=== PATIENT | female | born 1995 | race Two or more races ===

== ENCOUNTER 2024-12-04 16:34 | Day surgery (SDC) | payer SELFPAY ==
[2024-12-04 17:49] LABS: BASOPHILS ABSOLUTE AUTO 0.03 K/uL (0.00-0.20); BASOPHILS PERCENT AUTO 0.2 % (0.0-1.0); EOSINOPHILS ABSOLUTE AUTO 0.06 K/uL (0.00-0.45); EOSINOPHILS PERCENT AUTO 0.4 % (0.0-6.0); HEMATOCRIT 38.1 % (37.0-47.0); HEMOGLOBIN 13.6 g/dL (12.0-16.0); IMMATURE GRAN ABSOLUTE AUTO 0.05 K/uL (0.00-0.05); IMMATURE GRAN PERCENT AUTO 0.4 % (0.0-0.4); LYMPHOCYTES ABSOLUTE AUTO 1.51 K/uL (1.00-4.80); LYMPHOCYTES PERCENT AUTO 11.1 % (24.0-44.0); MEAN CORPUSCULAR HEMOGLOBIN 30.2 pg (28.0-32.0); MEAN CORPUSCULAR HGB CONC 35.7 g/dL (32.0-36.0); MEAN CORPUSCULAR VOLUME 84.7 fL (83.0-99.0); MEAN PLATELET VOLUME 10.5 fL (9.4-12.3); MONOCYTES ABSOLUTE AUTO 0.83 K/uL (0.00-0.80); MONOCYTES PERCENT AUTO 6.1 % (0.0-8.0); NEUTROPHILS ABSOLUTE AUTO 11.13 K/uL (1.80-7.70); NEUTROPHILS PERCENT AUTO 81.8 % (41.0-71.0); PLATELET COUNT,PLT 279 K/uL (150-400); WHITE BLOOD CELL COUNT,WBC 13.61 K/uL (3.9-11.3)
[2024-12-04 18:07] LABS: INR 0.94 (0.86-1.11)
[2024-12-04 18:19] LABS: A/G RATIO 0.7 (0.9-1.6); ALBUMIN 3.1 g/dL (3.4-5.0); BILIRUBIN TOTAL 0.3 mg/dL (0.2-1.0); CALCIUM 9.3 mg/dL (8.5-10.1); CARBON DIOXIDE,CO2 24.1 mmol/L (21.0-32.0); CREATININE 0.6 mg/dL (0.6-1.0); EST CRCL DRUG DOSING (CG) 108.43 mL/min; POTASSIUM,K 4.1 mmol/L (3.5-5.1); PROTEIN TOTAL,TP 7.4 g/dL (6.4-8.2)
[2024-12-04] MEDS ORDERED: propofoL 500 MG/50 ML 50 ML ONE (19:27)
[2024-12-04] MEDS ORDERED: Sodium Chloride 0.9% 20 ML ONE (19:37)
[2024-12-04] MEDS ORDERED: fentaNYL 100 MCG/2 ML SDV ONE (19:37)
[2024-12-04] MEDS ORDERED: dexmedeTOMIDine HCl 200 MCG/2 ML SDV ONE (19:37)
[2024-12-04] MEDS ORDERED: Ondansetron 4 MG/2 ML SDV IVPUSH PRN (19:59)
[2024-12-04] MEDS ORDERED: Promethazine 25 MG/ML SDV IM PRN (19:59)
[2024-12-04] MEDS ORDERED: Morphine 4 MG/ML Syringe IVPUSH PRN (19:59)
[2024-12-04] MEDS ORDERED: Ketorolac 30 MG/ML SDV IVPUSH PRN (19:59)
[2024-12-04] MEDS ORDERED: Acetaminophen 325 MG Tab PO PRN (19:59)
[2024-12-04] MEDS ORDERED: Misoprostol 200 MCG Tab ONE (20:04)
[2024-12-04] MEDS ORDERED: Methylergonovine 0.2 MG/1 ML Amp ONE (20:05)
[2024-12-04] MEDS ORDERED: Tranexamic Acid 1,000 MG/10 ML Vial ONE (20:07)
[2024-12-04] MEDS ORDERED: Ondansetron 4 MG/2 ML SDV ONE (20:07)
[2024-12-04] MEDS ORDERED: ceFAZolin 2 GM Vial ONE (20:07)
[2024-12-04] MEDS ORDERED: Dexamethasone 4 MG/ML 5 ML MDV ONE (20:07)
[2024-12-04] MEDS: ceFAZolin 2 GM in Sodium Chloride 0.9% 50 ML IV ONE (21:49)
== END 2024-12-05 01:35 | disposition home or self-care (01) ==
LOC: MW.ED 16:34 → MW.SDS 19:25 → MW.MS 21:47 → MW.SDS 12-05 01:35
PROVIDERS: ATTEND Obstetrics & Gynecology
DX: O03.1 Delayed or excessive hemorrhage following incomplete spontaneous abortion (principal)
CPT/HCPCS: 36415; 59812; 76815; 76857; 80053; 84702; 84703; 85025; 85610; 86850; 86900; 86901; A9270; J0131; J0690; J1100; J2210; J2405; J2704; J3010; 76998; 99283; 99284; C1729; J3490